=== PATIENT | male | born 1955 | race Caucasian/White ===

== ENCOUNTER 2016-10-19 08:20 | Day surgery (SDC) | payer BC ==
--- NOTE | ~2016-10-19 | OP ---
Record Of Operation [facility] [address] [place]. [address] NAME: Casey ENGLISH JR : 55 STATUS : [facility] [place] PAT#: [id number] AGE: 61 ADM/REG DATE : 10/19/16 MR#: [id number] REPORT SERV DATE: 10/19/16 DICTATED BY: EDU LUCIANO III DATE: 10/19/16 REPORT STATUS : Draft TRANSCRIBED BY: MODL DATE: 10/19/16 DATE OF PROCEDURE: 10/19/2016 PREOPERATIVE DIAGNOSIS: Symptomatic cholelithiasis cholecystitis. POSTOPERATIVE DIAGNOSIS: Symptomatic cholelithiasis cholecystitis. PATHOLOGY: Moderately distended gallbladder with dense adhesions over the infundibular area and moderate inflammatory changes over the distal gallbladder and cystic duct area. The patient also noted to have gross evidence of fatty liver changes. The remainder of the internal exam on the patient was unremarkable. PROCEDURE: Laparoscopic cholecystectomy with intraoperative cholangiogram and Joel-Cut core biopsies of the right lobe of the liver. Also a right costal margin block was performed for postop pain and supplementation using 30 mL 0.5% Marcaine with epinephrine to block the sixth and seventh intercostal nerves on the right side. HEDGE [employer]D PRINCIPAL: Tiffanie Luciano RN, POULTRY GRADER ANESTHESIA: General with endotracheal tube supplemented with 0.5% Marcaine with epinephrine and right costal margin block. ESTIMATED BLOOD LOSS: 10 mL. COMPLICATIONS: There were no complications. PROCEDURE IN DETAIL: A time-out was called and all personnel in the room agreed with the procedure, medications, and allergy status of the patient. The patient was prepped and draped in routine fashion with adequate general anesthesia. The area of the abdomen approached through an infraumbilical incision and open trocar technique used to place a 12 mm balloon port in the infraumbilical area. The balloon was inflated and the abdominal cavity insufflated to 15 mmHg pressure with carbon dioxide gas. The 0 degree angle operative telescope was then placed in the peritoneal cavity. Internal exam performed showing some mildly dilated small bowel, but no gross abnormalities seen. There is no evidence of herniation in the pelvic floor. The upper abdomen was unremarkable except for the fatty infiltrative yellowish color of the liver and the adhesions over the area of the gallbladder. The stomach and duodenum were unremarkable. The abdomen was entered through the falciform ligament with an 11 mm trocar under video observation. One 5 mm trocar was placed in the right upper quadrant also under video observation and used for manipulation. The gallbladder was then grasped with an atraumatic grasper and retracted superiorly and anteriorly. An adhesiolysis was then carried out for approach taking down adhesions with unipolar cautery used for hemostasis as the adhesions between the omentum and duodenum were taken down, and the cystic duct identified. A lymph node identified on the anterior surface of the cystic duct and this was submitted separately Record Of Operation [address] [address] NAME: Casey ENGLISH JR : 55 STATUS : [facility] [place] PAT#: [id number] AGE: 61 ADM/REG DATE : 10/19/16 MR#: [id number] REPORT SERV DATE: 10/19/16 DICTATED BY: EDU LUCIANO III DATE: 10/19/16 REPORT STATUS : Draft TRANSCRIBED BY: MODL DATE: 10/19/16 to Pathology, although it did not appear to be particularly pathologic. The cystic duct was mobilized and skeletonized. Cystic artery was identified behind the cystic duct and this was skeletonized and controlled with hemoclips and divided. The cystic duct was then skeletonized as it clearly came out of the gallbladder and the critical view was obtained in this fashion. Two titanium clips were placed on the infundibular side of the cystic duct. A percutaneously introduced Arrow catheter was then placed through a small incision in the side of the cystic duct and threaded into the duct about 1 cm and held in place with a partially collapsed titanium clip. Real-time C-arm intraoperative cholangiography obtained with 50% Hypaque showing good flow into the duodenum, good flow in the hepatic radicles without impedance to flow or filling defects that were persistent. After this had been ascertained, the Arrow catheter and clip were removed and three titanium clips placed on the cystic duct stump prior to its complete transection. A retrograde dissection of the gallbladder was then carried out with cautery current maintaining good hemostasis as the gallbladder was removed from infundibulum to fundus. The gallbladder was mobilized and placed over the top of the liver while the area was irrigated in the gallbladder fossa and hemostasis achieved with cautery current. Joel-Cut core biopsies were then obtained through the right costal margin trocar site obtaining two good cores and submitting them separately to Pathology to evaluate the fatty change in the patient's liver. Hemostasis of Binta's capsule was obtained with the cautery and good hemostatic control was appreciated prior to closure. All trocars were then removed under video observation. The infraumbilical incision was closed with [id number] sutures of 0 Vicryl on the fascia. The three trocar sites were all closed in the subcu level with interrupted 3-0 Vicryl and skin closed with Dermabond. The costal margin block was then performed along the right costal margin. The patient tolerated the procedure well with no complications. The patient is discharged on [place] 7.5/325 to take every four hours p.r.n. for pain, Zofran 4 mg to take every six hours p.r.n. for nausea. Record Of Operation [address] [place]. [address] NAME: Casey ENGLISH JR : 55 STATUS : [facility] [place] PAT#: [id number] AGE: 61 ADM/REG DATE : 10/19/16 MR#: [id number] REPORT SERV DATE: 10/19/16 DICTATED BY: EDU LUCINAO III DATE: 10/19/16 REPORT STATUS : Draft TRANSCRIBED BY: HARRY DATE: 10/19/16 RB/HARRY Edu Luciano III, M.D. / [id number] CC: Saran Almonte III, M.D. Michael Goodman, M.D.
--- NOTE | ~2016-10-19 | HP ---
History And Physical [place] [id number] [facility] [place]. [address] NAME: Casey ENGLISH JR : 55 STATUS : [facility] PAT#: [id number] AGE: 61 ADM/REG DATE : MR#: [id number] REPORT SERV DATE: 10/09/16 DICTATED BY: EDU LUCIANO III DATE: 10/09/16 REPORT STATUS : Draft TRANSCRIBED BY: MODL DATE: 10/09/16 DATE OF ADMISSION: 10/19/2016 To be admitted for day surgery on 10/19/2016 at 10 o'clock a.m. HISTORY OF PRESENT ILLNESS: The patient is a 61-year-old gentleman referred by Dr. Haywood and followed by Dr. Love as his primary care doctor with a two- to three-month history of progressive nausea and postprandial bloating and intolerance to fried and fatty foods. He notes the problem typically 20 minutes or so after eating. The pain lasts anywhere from 20 minutes to hours and has been quite severe for at least four weeks which has been accompanied by loose stools, four to five a day. He has been followed and evaluated by Dr. Haywood, and the CT scan done on this gentleman has revealed significant pathology in his gallbladder. His followup diagnosis on his 09/21/2016 CT scan showed a prominence of a gastric rugae that could not exclude gastritis and also noted was thickening of the distal esophagus, possibly related to esophagitis. The bowel appeared to be unremarkable as was the colon and the appendix. There was some hepatomegaly with fatty liver infiltrative changes. Two adjacent gallstones were also identified, and the larger of the two measuring 0.8 cm, but there was no evidence of pericholecystic fluid or gallbladder wall thickening at the time of that exam. The patient has continued to have symptoms which have slightly intensified. He also has some residual tenderness in the right upper quadrant even after the more acute pain has gone away. He had been placed on some Flagyl that did not seem to help him as a therapeutic trial. He still continued to gain weight despite his present illness. PAST MEDICAL HISTORY: The past history on the patient is generally healthy gentleman. MEDICATIONS: He is on medications including citalopram 20 mg daily, aspirin 81 mg daily, vitamin B12 a 1000 mcg daily, vitamin D3 a 1000 units daily, zolpidem 12.5 mg extended release daily, and sumatriptan 100 mg tablet once a day as needed. ALLERGIES: HE HAS NO DRUG ALLERGIES. PAST SURGICAL HISTORY: The foot only surgery the patient has ever had was wisdom teeth extracted years ago. He denies diabetes, high blood pressure, cancer, stroke, heart trouble, convulsions, bleeding, infections, sexually transmitted diseases, HIV, AIDS, hepatitis, or tuberculosis or arthritis. SOCIAL HISTORY: He is . Never uses alcohol, tobacco, or drugs. 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 He has a supportive who was with him. FAMILY HISTORY: The past family history on the patient is his father had brain tumor, mother with gallbladder disease, and his siblings were healthy with no known problems. He has a history of some colon polyps and had a colonoscopy a couple of years ago and followed by History And Physical [address] [address] NAME: Casey ENGLISH JR : 55 STATUS : PRE [facility]#: [id number] AGE: 61 ADM/REG DATE : MR#: [id number] REPORT SERV DATE: 10/09/16 DICTATED BY: EDU LUCIANO III DATE: 10/09/16 REPORT STATUS : Draft TRANSCRIBED BY: MODL DATE: 10/09/16 for this. REVIEW OF SYSTEMS: Again shows some 5-pound weight gain. He does wear glasses. He has some ringing in his ears and some hearing loss related to present illness, some loss of appetite, change of bowel movements with multiple loose stools, some nausea, but very little vomiting, frequent diarrhea was also noted. He has significant abdominal pain. His other review of system is consistent with some insomnia, history of frequent headaches, and a history of some head injury in the past. He has a little bit of joint pain and stiffness and swelling on occasion. PHYSICAL EXAMINATION: VITAL SIGNS: The patient is a significantly obese 246-pound white male with a BMI of 36.9, O2 saturation was 95%, respirations 18. His temperature was 98.4, pulse 72, blood pressure 170/90. HEENT: Showed nonicteric sclerae without any thyromegaly. Sclerae were nonicteric. His face was symmetric with adequate conversational hearing. No lateralization. CHEST: Clear from anterior to posterior with good inspiratory effort. HEART: Regular rate and rhythm with a diffuse PMI secondary to his obesity. Carotids were without bruit or thrill on auscultation. He had no edema or varicosities of significance. ABDOMEN: 2+ direct tenderness in the right upper quadrant to the mid epigastrium. No true rebound. No palpable or percussible organomegaly and no hernias in the inguinal or abdominal wall. : Normal male with descended testes and normal penis. LYMPHS: His lymph node exam was negative in the groin and neck region. SKIN: Normal. NEUROLOGIC: His gait and station were unremarkable. He was alert and oriented x3 with normal mood, affect, judgment, and memory. STUDIES: CT scan reviewed as well as Dr. Haywood's records. IMPRESSION: The patient has cholecystitis with cholelithiasis, subacute; diarrhea of unclear etiology, possibly related to gallbladder, but not definitely ascertained. He had CT scan with some thickening of the distal esophagus of unclear etiology, obesity, and history of borderline diabetes long time ago, but more recently has not been told he had any diabetic propensity. RECOMMENDATIONS: The recommendation of the patient is laparoscopic cholecystectomy with intraoperative cholangiogram. General anesthesia and risk of surgery were discussed with he and his and risk discussed including bleeding, infection, change to open laparotomy, injury to the bowel, injury to the bile ducts, general anesthetic risk, small-bowel obstruction risk, hernia risk. The patient and accept risks for potential benefit and will avoid fatty foods until his surgery can be scheduled. RB/HARRY History And Physical [address] [address] NAME: Casey ENGLISH JR : 55 STATUS : PRE [facility] PAT#: [id number] AGE: 61 ADM/REG DATE : MR#: [id number] REPORT SERV DATE: 10/09/16 DICTATED BY: EDU LUCIANO III DATE: 10/09/16 REPORT STATUS : Draft TRANSCRIBED BY: HARRY DATE: 10/09/16 Edu Luciano III, M.D. / [id number] CC: Edu Luciano III, M.D. Saran Cruz M.D.
[~2016-10-19 08:20] MED LIST: ASAB PO; CELEXA20 PO; COLESTID1 GM PO; IMITREX100 MG PO; VITAMIN B-121000 MC1 SL; VITAMIN D1000 UNI1 PO
== END 2016-10-19 17:38 | disposition home or self-care (01) ==
LOC: SDC 08:20
PROVIDERS: Surgery
PROC: BF131ZZ Fluoroscopy of Gallbladder and Bile Ducts using Low Osmolar Contrast (ICD-10-PCS; 2016-10-19)
PROC: 0FB14ZX Excision of Right Lobe Liver, Percutaneous Endoscopic Approach, Diagnostic (ICD-10-PCS; 2016-10-19)
PROC: 0FT44ZZ Resection of Gallbladder, Percutaneous Endoscopic Approach (ICD-10-PCS; principal; 2016-10-19 09:45)
DX: K80.10 Calculus of gallbladder with chronic cholecystitis without obstruction (principal); G47.33 Obstructive sleep apnea (adult) (pediatric); Z98.890 Other specified postprocedural states; F41.9 Anxiety disorder, unspecified; H91.90 Unspecified hearing loss, unspecified ear; Z97.4 Presence of external hearing-aid; Z79.899 Other long term (current) drug therapy; Z79.82 Long term (current) use of aspirin
CPT/HCPCS: 74300; 80053; 82150; 83690; 85025; 85610; 85730; 88304; 88305; 88307; 88313; 93005; J0690; J1885; J2250; J2405; J2710; J3010; Q9967